=== PATIENT | male | born 2000 | race Caucasian/White ===

== ENCOUNTER → 2024-01-20 10:55 | Outpatient (REF) | payer OTHER, SELFPAY | LOC: RAD 10:55 | PROVIDERS: ATTENDING PHYSICIAN Student in an Organized Health Care Education/Training Program; FAMILY PHYSICIAN Family Medicine | DX: J45.41 Moderate persistent asthma with (acute) exacerbation (principal) | CPT/HCPCS: 71046 ==

== ENCOUNTER 2024-10-03 21:22 | Emergency (ER) | payer OTHER, SELFPAY ==
[2024-10-03 21:32] VITALS: BP 138/92
--- NOTE | 2024-10-04 01:41 | ED.GENMED ---
History of Present Illness
General
Chief Complaint: Skin Problem
Source: patient and family
Exam Limitations: none
Time Seen by Provider: 10/04/24 00:19
Nursing documentation reviewed up to this point in time: agreed with
History of Present Illness
History of Present Illness:
24-year-old male presenting to the emergency department today with concerns of a sunburn. Claims that he was in [place] 3 days ago did not wear sunscreen noticed a sunburn later that day and the next day throughout the upper body maximal to the
upper shoulders and upper back. Noticed blistering yesterday ongoing discomfort. No fevers no chest pain shortness of breath. Urinating normally able to tolerate by mouth
Review of Systems
Review of Systems
Allergies reviewed?: Yes
All Other Systems: ROS reviewed and negative except as documented in HPI and ROS
Phy Exam
Physical Exam
Physical Exam:
GENERAL: Alert , in no apparent distress
EYE: pupils equal and reactive
NECK: Supple, no significant adenopathy.
ENT: o/p clr, mmm.
CARDIAC: Regular rate and rhythm .
LUNGS: Clear breath sounds bilaterally, no acute respiratory distress, no wheezes/rales/rhonchi
ABDOMEN: Soft, without focal tenderness, no r/g, no cvat
NEUROLOGICAL: Alert and oriented, no focal neuro deficits
SKIN: Diffuse redness of patient's skin throughout the thorax posterior neck arms bilaterally. Small amount of blistering upper back. No breaks in the skin. Warm and dry, skin intact.
MUSCULOSKELETAL: No edema, well perfused.
PSYCH: Normal and appropriate interaction.
Course
Orders/Labs/Results
Orders:
Orders
10/04/24 01:40
Oxycodone/Acetaminophen [Percocet 5/325] 1 tablet PO NOW STA
Vital Signs
Initial and Last Documented VS:
Initial Vital Signs
Temp Pulse Resp BP Pulse Ox
98.0 F 116 18 138/92 99
10/03/24 21:32 10/03/24 21:32 10/03/24 21:32 10/03/24 21:32 10/03/24 21:32
Last Documented Vital Signs
Temp Pulse Resp BP Pulse Ox
98.0 F 82 16 132/87 98
10/03/24 21:32 10/04/24 02:05 10/04/24 02:05 10/04/24 02:05 10/04/24 02:05
MDM/Problems Addressed
MDM/Problems Addressed:
24-year-old male presenting to the emergency department today with concerns of a sunburn sustained 3 days ago. Here he is well-appearing no distress vital signs are normal during my assessment. Looks to have a partial-thickness superficial burn
that is now starting to blister. No evidence of any life threat at this time was advised on proper burn care and otherwise given return precautions for any signs of infection or complications.
*Pulse Oximetry
SaO2: 99
Oxygen Mode of Delivery: Room air
Patient hypoxic: no (98)
*Critical Care Note
Total Time (30-74mins, 75-104mins- exclusive of procedures): Not Applicable
ED Attending Note
-
Portions of this chart may have been created with voice recognition software.� Occasional wrong word or��sound alike� substitutions may have occurred due to the inherent limitations of voice recognition software.
Discharge Plan
Departure
Patient Disposition: Home (Routine Discharge)
Date of Disposition: 10/04/24
Time of Disposition: 01:42
Patient with high blood pressure during this ER visit?: No
Condition: Good
Covid-19: Not Applicable
Discharge Problem:
Sunburn
Instructions: Sunburn (DC)
Prescriptions:
New
oxycodone-acetaminophen [Endocet] 5-325 mg tablet
1 tab PO Q8H PRN (Reason: Pain) Qty: 7 0RF
Referrals:
Lalitha Shah MD [Family Provider, Family Practice]
Stand Alone Forms: Return to Work
Activity Restrictions/Additional Instructions:
You came to the emergency department today with concerns of significant symptoms secondary to sunburn. Please keep the area clean and use antibiotic ointment to exposed areas after Blister rupture. Return for any worsening, new or concerning
symptoms.
Interventions
Interventions:
*Risk Screen - Suicide Last Done: 10/03/24 21:32
*General Assessment Last Done: 10/03/24 21:32
*Neglect/Abuse Screening Last Done: 10/04/24 01:30
*ED- Fall Risk Assessment Last Done: 10/03/24 21:32
*ED COVID-19 Vaccine History Last Done: 10/03/24 21:32
*Nursing Disposition Last Done: 10/04/24 02:05
ED-Skin Assessment Last Done: 10/03/24 23:16
Discharge Date and Time
Discharge Date/Time: 10/04/24 02:06
Print Language: EGYPTIAN
[2024-10-04] MEDS: PERCOCET 5/325 1 TABLET PO (01:58)
[2024-10-04 02:05] VITALS: BP 132/87; BMI 26.6
== END 2024-10-04 02:06 | disposition home or self-care (01) ==
LOC: EMR 21:22
PROVIDERS: EMERGENCY PHYSICIAN Emergency Medicine; FAMILY PHYSICIAN Family Medicine
DX: L55.1 Sunburn of second degree (principal)
CPT/HCPCS: 99283